=== PATIENT | male | born 1980 | race Caucasian/White ===

== ENCOUNTER → 2022-02-28 10:03 | Outpatient (CLI) | payer OTHER, SELFPAY ==
[2022-02-28 12:36] LABS: COVID19 -Nasal RAPID Negative (Negative)
== END ==
PROVIDERS: PCP Nurse Practitioner; Visit Provider Family Medicine Sleep Medicine
DX: Z20.822 Contact with and (suspected) exposure to COVID-19 (principal)
CPT/HCPCS: 87635; C9803

== ENCOUNTER 2022-03-03 12:13 | Day surgery (SDC) | payer OTHER, SELFPAY ==
[2022-03-03] VITALS (7 sets, daily range): BP systolic 112–137; BP diastolic 72–93; PULSE 76–92; RESP 14–16; TEMP 30–37; O2SAT 94–98; BMI 38.2
--- NOTE | 2022-03-03 | PATH_ITS ---
[facility] Accession Number: [id number] . 01 Material submitted: . stomach - ANTRAL . 02 Diagnosis: Antral: Portions of gastric antral mucosa with mild chronic inflammation. Negative for Helicobacter organisms by immunohistochemistry. Positive for intestinal metaplasia. Negative for dysplasia or malignancy. MRV 03/07/2022 1340 Local . 02 Electronically signed: . Cortney Capone MD, Pathologist NPI- [id number] . 01 Gross description: . ANTRAL: Received in formalin are 2 fragment(s) of mathews, soft tissue measuring 0.3 x 0.3 x 0.2 cm to 0.2 x 0.1 x 0.1 cm submitted entirely in 1 cassette(s) /QBJ 03/04/2022 0926 Local . 02 Microscopic: . An immunohistochemical stain is performed to evaluate for Helicobacter organisms and is negative. The control stain shows appropriate reactivity. . * This test was developed and its performance characteristics determined by [facility]. It has not been cleared or approved by the U.S. Food and Drug Administration. The FDA has determined that such clearance or approval is not necessary. This test is used for clinical purposes. It should not be regarded as investigational or for research. . 02 Pathologist provided ICD-10: R10.11, K76.0 . 02 CPT . 648506, B86076 Specimen Comment: A courtesy copy of this report has been sent to [facility] Pathology Performed at: 01 [facility] Cytology [address] [place] [address], [place], [place] [id number] MD Adan Vazquez MD Phone: [phone] Performed at: 02 [facility] [place] [address] [place], [place] [id number] MD Bhargavi Manzano MD Phone: [phone]
--- NOTE | 2022-03-03 13:36 | PM.HP.1 ---
History of Present Illness History of Present Illness Date Patient Seen: 03/03/22 Time Patient Seen: 13:36 Chief complaint: EGD W/POSS BX Narrative: I reviewed my office note from January 21. No changes. Patient History Medical History Sleep apnea, central Surgical History [place] teeth extracted Meds Home Medications and Allergies Home Medications Medication Instructions Recorded Confirmed Type ACETAMINOPHEN (TYLENOL EXTRA 500 mg PO Q6HP #0 06/08/13 03/03/22 History STRENGTH) CA PANTOTHENATE/FOLIC ACID/VIT 1 tab PO QDAYP #0 06/08/13 03/03/22 History (MULTIVITAMIN) clobetasol 0.05 % topical ointment 0.05 % TOPICAL QDAY #15 06/08/13 03/03/22 Rx ibuprofen 200 mg tablet 400 mg PO Q6HP #0 06/08/13 03/03/22 History Allergies Allergy/AdvReac Type Severity Reaction Status Date / Time No Known Drug Allergies Allergy Verified 03/03/22 13:32 Review of Systems Review of Systems ROS: Yes All systems reviewed with the patient and are negative except as otherwise documented Exam Const General: cooperative and comfortable Orientation: alert HENMT Head: normocephalic Ears: external ears normal Nose: external nose normal Face and sinus: normal facial exam Mouth: oral mucosae normal Eyes General: appearance normal, both eyes and all related structures Neck Neck: normal visual inspection Chest Chest: normal inspection of the chest Resp Effort & Inspection: normal respiratory effort Cardio Rate: regular rate GI Inspection: normal to inspection Skin General: no rashes or lesions noted and No jaundice Neuro General: patient alert and moves all extremities Cognition: normal cognition Speech: speech normal Extrem General: no pedal edema Psych Appearance: grossly normal Assessment & Plan Assessment & Plan narrative: 41-year-old male with intermittent right upper quadrant pain. Diagnostic EGD is pursued today. Time Spent With Patient Critical Care time: I spent a total of [] minutes of critical care time on this patient's care today; this time is exclusive of procedural time.
--- NOTE | 2022-03-03 13:38 | PM.PREOP ---
Pre-operative Note COVID-19 COVID-19 status: Negative Result date/Date tested (Pos, Neg/Pending): 02/28/22 Criteria for continued procedure: Possibility delay results in more complex future surgery or treatment Interval Note History & Physical reviewed/Exam performed by Physician: Yes Changes to H&P: No ASA Class (for procedural sedation): II
[2022-03-03] MEDS: SODIUM CHLORIDE 0.9% 1,000 ML 84 ML IV (13:48)
--- NOTE | 2022-03-03 14:41 | PM.OP.EGD ---
Operative Date/Time/Diagnoses Date of procedure: 03/03/22 Time of procedure: 14:41 Pre-op diagnosis: Right upper quadrant pain Post-op diagnosis: same Procedure & Clinicians Study performed: EGD with biopsies Same procedure as scheduled: Yes Indications: Right upper quadrant pain Surgeon: Jesse Alvarado Procedure Notes SCOAP/Timeout: Done Procedure in detail: After the risks and benefits were explained, written and verbal informed consent was obtained. The patient was brought into the procedure room and placed into the left lateral decubitus position. Please see nurse pole frame construction worker notes for sedation details. The scope was introduced into the mouth through the bite block and advanced under direct visualization to the 2nd portion of the duodenum. The scope was slowly withdrawn carefully examining the mucosa for any defects or lesions. Retroflexed views were accomplished in the stomach. The stomach was decompressed, the scope was then removed from the patient who tolerated the procedure well. Sedation minutes: 7 Complications: none Impression: 1. Esophagus: Squamocolumnar junction correlated with the top of the gastric folds. GEJ was at 38 cm from the incisors. No acute erosive changes no strictures no mass lesions. The esophagus was largely unremarkable. 2. Stomach: Patient had erosive gastropathy. Erosions were confined to the region of the antrum and some elements of the distal body. Biopsies were taken from the antral mucosa for exclusion of Helicobacter or other underlying pathology. There were no ulcers no outlet obstruction no mass lesions. 3. Duodenum: The the process responsible for the erosive gastropathy seem to extend through the widely patent pylorus into the duodenal bulb. This was characterized by scattered erythema but no ulcers no mass lesions. Beyond the bulb the mucosa in the duodenum appeared completely normal. Endoscopic diagnosis Erosive gastro-duodenopathy Post-procedure Plan for aftercare: 1. Await histopathology. 2. If Helicobacter is found it will need to be eradicated with standard triple therapy. 3. Minimize/avoid ibuprofen and other NSAIDs. 4. Keep scheduled surgical appointment to discuss gallbladder. Disposition: PACU
== END 2022-03-03 15:20 | disposition home or self-care (01) ==
PROVIDERS: PCP Nurse Practitioner; Referring Provider Internal Medicine Gastroenterology; Visit Provider Internal Medicine Gastroenterology
PROC: 0DJ08ZZ Inspection of Upper Intestinal Tract, Via Natural or Artificial Opening Endoscopic (ICD-10-PCS; CPT 43235; principal; 2022-03-03 13:30)
DX: R10.11 Right upper quadrant pain (principal); K31.9 Disease of stomach and duodenum, unspecified; K29.50 Unspecified chronic gastritis without bleeding
CPT/HCPCS: 43239; J2704

== ENCOUNTER → 2022-10-02 10:38 | Outpatient (CLI) | payer OTHER, SELFPAY ==
[2022-10-02 11:25] LABS: COVID19 -Nasal RAPID Negative (Negative)
== END ==
PROVIDERS: PCP Nurse Practitioner; Visit Provider Surgery
DX: Z01.812 Encounter for preprocedural laboratory examination (principal); Z20.822 Contact with and (suspected) exposure to COVID-19
CPT/HCPCS: 87635; C9803

== ENCOUNTER 2022-10-03 10:48 | Day surgery (SDC) | payer OTHER, SELFPAY ==
[2022-10-02 10:46] VITALS: BMI 37.4
[2022-10-03] VITALS (11 sets, daily range): BP systolic 131–167; BP diastolic 83–107; PULSE 72–87; RESP 10–19; TEMP 36.4–37; O2SAT 94–99; BMI 37.4
--- NOTE | 2022-10-03 | PATH_ITS ---
[facility] Accession Number: [id number] . 01 Material submitted: . gallbladder - GALLBLADDER . 01 Diagnosis: Gallbladder, Cholecystectomy: Mild chronic calculous cholecystitis. Adjacent hepatic tissue without significant diagnostic abnormalities. Negative for dysplasia or malignancy. [facility] 10/07/2022 1120 Local . 01 Electronically signed: . Jennifer Loya MD, Pathologist NPI- [id number] . 01 Gross description: . Received in formalin, labeled with the patient's name, , and gallbladder, and consists of an intact gallbladder measuring 7.2 x 3.2 x 3.2 cm. The serosa is yellow and smooth while the hepatic surface is shaggy and significant for a full-thickness defect measuring 0.5 cm in greatest dimension. The cystic duct is received closed with a clamp, is inked blue, and no pericystic lymph node is identified. Opening the specimen reveals the lumen to be filled with dark green viscous bile and multiple orange-brown faceted calculi measuring up to 1.4 cm in greatest dimension, not grossly obstructing the cystic duct. The mucosa is dark green and velvety with numerous pinpoint yellow areas of discoloration, with no polyps or lesions identified. The morales average 0.4 cm thick. Refrigeration Person sections to include the cystic duct margin and full-thickness sections are submitted in cassettes A1-A2. ([id number]) /FRR 10/04/20221999 Local . 01 Pathologist provided ICD-10: K80.50 . 01 CPT . 561121 Specimen Comment: A courtesy copy of this report has been sent to [phone] Performed at: 01 [facility] Cytology [address] [place] [address], [place], [place] [id number] MD Adan Vazquez MD Phone: [phone]
[2022-10-03] MEDS: LACTATED RINGERS 1,000 ML 100 ML IV (11:36)
--- NOTE | 2022-10-03 12:48 | PM.PREOP ---
Pre-operative Note Interval Note History & Physical reviewed/Exam performed by Physician: Yes Changes to H&P: No
--- NOTE | 2022-10-03 13:50 | SUR.OPER ---
Supine on padded OR bed, head on pillow, arms padded and left arm tucked at side, legs uncrossed, safety belt at thigh, tape over blanket over lower legs .
[2022-10-03] MEDS: CEFAZOLIN 2 GM/100 ML PREMIX 100 ML IV (14:20)
[2022-10-03] MEDS: BUPIVACAINE 0.25% (PF) 30 ML, EPINEPHrine 0.15 MG INJ (14:30)
[2022-10-03] MEDS: fentaNYL 100 MCG/2 ML INJ IV ×2 (15:25→15:34)
--- NOTE | 2022-10-03 15:35 | PM.OP.1 ---
Operative Date/Time/Diagnoses Date of procedure: 10/03/22 Time of procedure: 15:35 Pre-op diagnosis: Biliary colic Post-op diagnosis: same Procedure & Clinicians Procedure: Laparoscopic cholecystectomy Same procedure as scheduled: Yes Indications: Symptoms and radiographic findings consistent with biliary colic Surgeon: Kuldip Murray Click Yes if Unassisted: Yes Anesthesia Type: General Operative Notes Findings: Chronic cholecystitis thick layer of adipose tissue of the gallbladder. Critical view of safety established Specimen(s): other (Gallbladder) Estimated Blood Loss (mL): 50 Procedure in detail: The patient was placed supine on the table and bilateral lower extremity compression devices were applied. Anesthesia was induced they were intubated with an endotracheal tube and received 2g of Ancef. A time-out was performed. They were prepped and draped in sterile fashion. An infraumbilical incision was made, the umbilical stalk was elevated and the fascia was sharply incised entering the abdomen atraumatically. A blunt tip 12mm balloon trocar was then inserted, pneumoperitoneum was established and inspection of the abdomen demonstrated no evidence of injury. They were placed head up and right side up and then a 11 mm port was placed high in the epigastrium and two 5mm in the right upper quadrant. The gallbladder was grasped by the fundus and retracted over the liver and retracted laterally by the infundibulum. Wall of the gallbladder was thick and covered with adipose tissue consistent with chronic cholecystitis. Using electrocautery the lateral plane between the gallbladder and the liver was opened towards the fundus. The gallbladder was then retracted laterally and the medial plane was developed in the same manner. With the gallbladder mobilized the bottom of the cystic plate was visualized. The hepatocystic triangle was meticulosly skeletonized using hook electrocautery of all fat and fibrous tissue from both the front and the back. Only two structures were then clearly seen entering the gallbladder the cystic duct and the cystic artery. With the critical view of safety fully established the cystic duct was clipped twice proximally and once distally using the 10 mm weck hemo clip applied under direct visualization and then sharply divided. The cystic artery was divided in the same fashion. The gallbladder was removed from the liver bed using electro cautery. The liver bed was then inspected for hemostasis and this was achieved. The abdomen was irrigated with sterile saline and inspection was made that showed the clips in good position. The specimen was removed using Endo-Catch. The abdomen was desufflated. The umbilical fascia was closed with 0 Vicryl in a [id number] fashion under direct visualization. Skin incisions were irrigated and closed with 4-0 Monocryl. 30 ml of 0.25% bupivacaine was infiltrated into the subcutaneous tissue of the incisions. The wounds were sealed with Dermabond. Patient emerged from anesthesia was extubated and transferred to recovery in stable condition. The sponge and instrument count at the end of the operation was correct. Complications: none Post-operative Condition: stable Disposition: same day surgery
[2022-10-03] MEDS: OXYCODONE/ACETAMINOPHEN 5/325 TABLET 1 TAB PO ×2 (15:50→16:21)
== END 2022-10-03 16:33 | disposition home or self-care (01) ==
PROVIDERS: PCP Nurse Practitioner; Referring Provider Surgery; Visit Provider Surgery
PROC: 0FT44ZZ Resection of Gallbladder, Percutaneous Endoscopic Approach (ICD-10-PCS; CPT 47562; principal; 2022-10-03 12:30)
DX: K80.10 Calculus of gallbladder with chronic cholecystitis without obstruction (principal)
CPT/HCPCS: 47562; J0171; J0690; J1100; J1885; J2250; J2405; J2704; J3010

== ENCOUNTER 2024-01-29 12:19 | Day surgery (SDC) | payer OTHER, SELFPAY ==
--- NOTE | 2024-01-29 | PATH_ITS ---
[facility] Accession Number: [id number] No. of containers..01 Tissue . 01 Material submitted: . gastrointestinal site - GASTRIC BIOPSY . 01 Diagnosis: GASTRIC BIOPSY: Gastric mucosa with mild chronic inflammation. No Helicobacter organisms identified. No intestinal metaplasia, dysplasia, or malignancy identified. [facility] 02/03/2024 1308 Local . 01 Electronically signed: . Adan Vazquez MD, Pathologist NPI- [id number] . 01 Gross description: . GASTRIC BIOPSY: Received in formalin are 3 fragment(s) of mathews, soft tissue measuring 0.1 x 0.1 x 0.1 cm to 0.2 x 0.2 x 0.2 cm submitted entirely in 1 cassette(s) /KURT 02/03/20241307 Local . 01 Microscopic: . GASTRIC BIOPSY: An immunohistochemical stain was performed to evaluate for Helicobacter organisms and is negative. The control stains appropriately. * This test was developed and its performance characteristics determined by [facility]. It has not been cleared or approved by the U.S. Food and Drug Administration. The FDA has determined that such clearance or approval is not necessary. This test is used for clinical purposes. It should not be regarded as investigational or for research. . 01 Pathologist provided ICD-10: K29.50 . 01 CPT . 888195, C61805 Specimen Comment: A courtesy copy of this report has been sent to [phone] Performed at: 01 [facility] Cytology [address] [place] [id number] MD Adan Vazquez MD Phone: [phone]
[2024-01-29 12:37] VITALS: BP 142/76; PULSE 87; RESP 16; TEMP 36.9; O2SAT 99
[2024-01-29] MEDS: LACTATED RINGERS 1,000 ML 42 ML IV (12:41)
--- NOTE | 2024-01-29 13:31 | PM.HP.1 ---
History of Present Illness History of Present Illness Date Patient Seen: 01/29/24 Time Patient Seen: 13:31 Chief complaint: EGD w/poss bx Narrative: 43-year-old man with epigastric pain here for diagnostic esophagogastroduodenoscopy please refer to the H&P from November 2023 for further detail. No interval change in health. [facility] Medical History Hypertriglyceridemia Gallstones Fatty liver Sleep apnea, central Surgical History [place] teeth extracted Family History Grandfather Stroke Prostate cancer Family/Other Cancer, face Social History marital status: household members: spouse, family and children lives independently: Yes occupational status: employed Smoking Status: Never smoker alcohol intake: current substance use type: does not use Meds Home Medications and Allergies Home Medications Medication Instructions Recorded Confirmed Type clobetasol 0.05 % topical ointment 0.05 % topical QDAY ##15 06/08/13 01/29/24 Rx lysine 500 mg tablet 500 mg PO DAILY 03/13/22 01/29/24 History ketoconazole 2 % topical cream 1 applic topical BID 12/24/23 01/29/24 History pantoprazole 40 mg tablet,delayed 40 mg PO BEDTIME 12/24/23 01/29/24 History release ursodiol 500 mg tablet 500 mg PO BID 12/24/23 01/29/24 History Allergies Allergy/AdvReac Type Severity Reaction Status Date / Time No Known Drug Allergies Allergy Verified 01/29/24 12:24 Exam Vital Signs (past 8 hours): - 01/29/24 12:37 Temperature 98.5 F Pulse Rate 87 Respiratory Rate 16 Blood Pressure 142/76 H Pulse Oximetry 99 Oxygen Delivery Method Room Air Oxygen Delivery Method Room Air Narrative Exam Narrative: General adult man alert oriented no acute distress Chest nonlabored respiration Extremities warm well perfused Assessment & Plan Assessment and plan (1) Abdominal pain: Qualifiers: Abdominal location: upper abdomen, unspecified Qualified Code(s): R10.10 - Upper abdominal pain, unspecified Status: Acute Assessment & Plan narrative: 43-year-old man with abdominal pain here for diagnostic insert EGD. Risks, benefits, alternatives explained. Risks including but not limited to myocardial infarction, aspiration, bleeding, pain, missed lesion, incomplete examination, need for further radiographic studies, intestinal injury, and need for major abdominal surgery were discussed. All questions were answered to their satisfaction, and they are in agreement with this plan.
[2024-01-29 13:53] VITALS: BP 139/73; PULSE 91; RESP 12; TEMP 36.3; O2SAT 96
--- NOTE | 2024-01-29 13:55 | PM.OP.EGD ---
Operative Date/Time/Diagnoses Date of procedure: 01/29/24 Time of procedure: 13:55 Pre-op diagnosis: Abdominal pain Procedure & Clinicians Study performed: Diagnostic esophagogastroduodenoscopy Same procedure as scheduled: Yes Indications: Epigastric pain Surgeon: Kuldip Murray Procedure Notes Procedure in detail: The history and physical was performed/updated and the patient is ASA class is 2. The procedure was discussed in detail with the patient. Potential risks complications including infection, bleeding, missed diagnosis, perforation, need for surgery, and were explained. Their questions were answered and informed consent was obtained. Patient placed in left lateral decubitus position. Time out was performed. Procedural sedation was administered by Anesthesia. A bite block was placed. the scope was inserted into the mouth and advanced through the esophagus and into the stomach. The pylorus was intubated and the duodenum was examined to the 2nd portion. The scope was then withdrawn into the stomach and was retroflexed. The stomach was decompressed and scope was withdrawn slowly through the esophagus. FINDINGS -mild gastritis without ulceration. Biopsies of the stomach performed with forceps. -normal duodenum and esophagus The patient tolerated the procedure well and will be discharged when they meet criteria. Specimen(s): other (Gastric) Impression: Mild gastritis Post-procedure Plan for aftercare: Continue PPI. A repeat CT abdomen pelvis will be ordered and if it demonstrates residual fluid collections in the right upper quadrant proceed with interventional radiology percutaneous drainage. Disposition: same day surgery
[2024-01-29 13:58] VITALS: BP 121/74; PULSE 83; RESP 12; O2SAT 96
[2024-01-29 14:02] VITALS: BP 121/74; PULSE 84; RESP 14; O2SAT 96
[2024-01-29 14:08] VITALS: BP 124/89; PULSE 83; RESP 16; O2SAT 95
== END 2024-01-29 14:25 | disposition home or self-care (01) ==
PROVIDERS: PCP Nurse Practitioner; Referring Provider Surgery; Visit Provider Surgery
PROC: 0DJ08ZZ Inspection of Upper Intestinal Tract, Via Natural or Artificial Opening Endoscopic (ICD-10-PCS; CPT 43235; principal; 2024-01-29 13:15)
DX: K29.50 Unspecified chronic gastritis without bleeding (principal)
CPT/HCPCS: 43239; J2704

== ENCOUNTER → 2024-03-10 11:08 | Outpatient (CLI) | payer OTHER, SELFPAY ==
--- NOTE | 2024-03-10 11:09 | DI.CT.S_ITS ---
PROCEDURE: CT ABDOMEN PELVIS W CON INDICATIONS: Intra abdominal fluid collection, history of cholecystectomy TECHNIQUE: After the administration of intravenous contrast, axial sections acquired from the lung bases to the pubic symphysis. Coronal and sagittal reformats were performed. For radiation dose reduction, the following was used: automated exposure control, adjustment of mA and/or kV according to patient size. COMPARISON: CT abdomen pelvis 08/20/2023. FINDINGS: Image quality: Diagnostic. Lower Chest: No significant findings. ABDOMEN: Liver: No solid mass. Gallbladder: Status post cholecystectomy. There is fluid attenuating density in the gallbladder fossa measuring up to 1.7 cm, stable since 08/20/2023. No drainable fluid collection. Biliary ducts: No biliary dilation. Pancreas: No ductal dilation. Spleen: Size is within normal limits. Adrenal Glands: No adrenal nodules. Kidneys and Ureters: No hydronephrosis. No solid mass. No complex renal cystic lesion which requires follow up. Stomach and Bowel: Normal colonic caliber, without significant wall thickening. Peritoneum: No abnormal intraperitoneal fluid. No free air. Ventral Wall: No significant ventral hernia. Abdominal Nodes: No retroperitoneal or mesenteric adenopathy by size criteria. Vessels: Aorta and inferior vena cava are normal in size. PELVIS: Pelvic Organs: Unremarkable. Bladder: No bladder wall thickening, accounting for underdistention. Pelvic Nodes: No enlarged lymph nodes. Miscellaneous: No inguinal hernias are seen. Bones: No aggressive osseous abnormality. IMPRESSION: Status post cholecystectomy with fluid attenuating density in the gallbladder fossa, not significantly changed since CT in July 2023. Approved by: Iesha Arora M.D.,Ph.D. on 03/10/2024 at 17:36
== END ==
PROVIDERS: PCP Nurse Practitioner; Referring Provider Surgery; Visit Provider Surgery
DX: R18.8 Other ascites (principal); Z90.49 Acquired absence of other specified parts of digestive tract
CPT/HCPCS: 74177; Q9967

== ENCOUNTER 2025-08-08 23:18 | Observation (INO) | payer OTHER, SELFPAY ==
[2025-08-08 23:24] VITALS: BP 156/92; PULSE 114; RESP 18; TEMP 37.7; O2SAT 97; BMI 40.4
--- NOTE | 2025-08-08 23:43 | DI.CT.S_ITS ---
PROCEDURE: CT ABDOMEN PELVIS W CON INDICATIONS: RLQ pain TECHNIQUE: After the administration of intravenous contrast, axial sections acquired from the lung bases to the pubic symphysis. Coronal and sagittal reformats were performed. For radiation dose reduction, the following was used: automated exposure control, adjustment of mA and/or kV according to patient size. COMPARISON: [facility], CT, CT ABDOMEN PELVIS W CON, 03/10/2024, 11:19. FINDINGS: Image quality: Diagnostic. Lower Chest: No significant findings. ABDOMEN: Liver: No solid mass. Gallbladder: Absent. Again seen fluid attenuation density near the gallbladder fossa measuring approximately 1.7 cm, stable. Biliary ducts: No biliary dilation. Pancreas: No ductal dilation. Spleen: Size is within normal limits. Adrenal Glands: No adrenal nodules. Kidneys and Ureters: No hydronephrosis. No solid mass. No complex renal cystic lesion which requires follow up. Stomach and Bowel: Normal colonic caliber, without significant wall thickening. The proximal portion of the appendix is dilated measuring up to 11 mm with mild surrounding inflammation. Peritoneum: No abnormal intraperitoneal fluid. No free air. Minimal central mesenteric stranding is noted. Ventral Wall: No significant ventral hernia. Abdominal Nodes: No retroperitoneal or mesenteric adenopathy by size criteria. Vessels: Aorta and inferior vena cava are normal in size. PELVIS: Pelvic Organs: Unremarkable. Bladder: Decompressed, limiting evaluation. Pelvic Nodes: No enlarged lymph nodes. Miscellaneous: No inguinal hernias are seen. Bones: No aggressive osseous abnormality. IMPRESSION: Dilatation of the proximal appendix which is fluid-filled with mild surrounding inflammation, most consistent with acute appendicitis. No extraluminal gas or organized fluid collections. Dictated by: Demario Orellana M.D. on 08/09/2025 at 0:26 Approved by: Demario Orellana M.D. on 08/09/2025 at 0:30
[2025-08-08] MEDS: KETOROLAC 30 MG/ML VIAL 15 MG IV (23:47)
[2025-08-08 23:48] LABS: Add Manual Diff / Slide Review NO; Hematocrit 47.9 % (41-53); Hemoglobin 16.4 g/dL (13.5-17.5); Lymphocytes Absolute Auto 1700 /uL (1100-4500); Mean Corpuscular HGB Conc 34.3 % (30-36); Mean Corpuscular Hemoglobin 29.9 PG (26-34); Mean Corpuscular Volume 87.3 fL (80-100); Platelet Count 215 X10^3/uL (150-400)
[2025-08-09] VITALS (14 sets, daily range): BP systolic 104–155; BP diastolic 57–92; PULSE 81–106; RESP 16–36; TEMP 36.7–37.6; O2SAT 91–97; BMI 40.4
--- NOTE | 2025-08-09 | PATH_ITS ---
[facility] Accession Number: [id number] No. of containers..01 Tissue . 01 Material submitted: . appendix - APPENDIX . 01 Diagnosis: APPENDIX, APPENDECTOMY: Acute suppurative appendicitis with distal fibrous obliteration. MRV 08/16/2025 1728 Local . 01 Electronically signed: . Danita Parikh DO, Pathologist NPI- [id number] . 01 Gross description: . The specimen is received in formalin with two patient identifiers and appendix and consists of a 6.5 x 1.0 x 0.9 cm, vermiform appendix with an attached 4.0 x 0.8 x 0.4 cm mesoappendix. The serosal surface is mathews-white, slightly hyperemic with a 1.1 cm in greatest dimension central area of yellow to white laminated exudative fibrous adhesions. The appendiceal margin is clipped and is further inked blue. Sectioning shows an intact appendiceal wall averaging 0.2 cm in thickness. No perforation is appreciated. The lumen ranges from 0.1 up to 0.3 cm in diameter. Paper Products Supervisor sections are submitted in cassette A1 to include the tip of appendix bisected, complete cross-section of appendix to include exudative serosa, and blue-inked appendiceal resection margin. ([id number]) /MRV 08/10/2025 1836 Local . 01 Pathologist provided ICD-10: K38.9 . 01 CPT . 394051 Specimen Comment: A courtesy copy of this report has been sent to [facility] Pathology Performed at: [address] [address], [place], [place] [id number] MD Adan Vazquez MD Phone: [phone]
[2025-08-09 00:02] LABS: Alanine Aminotransferase 54 IU/L (<50); Albumin 5.0 g/dL (3.5-5.0); Albumin Globulin Ratio 1.4 (1.0-2.8); Alkaline Phosphatase 78 U/L (38-126); Blood Urea Nitrogen 19 mg/dL (9-20); Calcium 9.8 mg/dL (8.4-10.2); Carbon Dioxide 27 mmol/L (22-32); Chloride 101 mmol/L (98-107); Estimated Glomerular Filt Rate > 60 mL/min (>60); Globulin 3.5 g/dL (1.7-4.1); Glucose 107 mg/dL (70-99); HEMOLYSIS < 15 (0-50); Lipase 92 U/L (23-300); Potassium 3.8 mmol/L (3.4-5.1); Sodium 139 mmol/L (137-145); Total Protein 8.5 g/dL (6.3-8.2)
--- NOTE | 2025-08-09 00:12 | ED.ABDPAIN ---
HPI - Abdominal Pain General Chief Complaint: Abdominal Pain Stated Complaint: Abdominal Pain, Fever, Chills Time Seen by Provider: 08/08/25 23:40 Source: patient, RN notes reviewed and old records reviewed Mode of arrival: Ambulatory Limitations: no limitations History of Present Illness HPI narrative: 45-year-old male no reported medical issues presents with a complaint of right lower quadrant pain that started about 4:00 a.m. this afternoon has been persistent has not changed location. He denies any back or flank pain. No fevers or chills. Denies any nausea or vomiting. Denies any diarrhea or constipation, no black or bloody stools. No dysuria urgency or frequency. Patient states he does not take any daily medications. He has had a prior cholecystectomy but still has a appendix. Denies any history of kidney stones. Denies any drug allergies. No tobacco, as 2 alcoholic drinks daily, no recreational drugs. Related Data Home Medications ?Medication ?Instructions ?Recorded ?Confirmed lysine 500 mg tablet 500 mg PO DAILY 03/13/22 01/29/24 ketoconazole 2 % topical cream 1 applic topical BID 12/24/23 01/29/24 pantoprazole 40 mg tablet,delayed 40 mg PO BEDTIME 12/24/23 01/29/24 release ursodiol 500 mg tablet 500 mg PO BID 12/24/23 01/29/24 Previous Rx's ?Medication ?Instructions ?Recorded clobetasol 0.05 % topical ointment 0.05 % topical QDAY ##15 06/08/13 Allergies Allergy/AdvReac Type Severity Reaction Status Date / Time No Known Drug Allergies Allergy Verified 01/29/24 12:24 Review of Systems Review of Systems ROS Unobtainable: All systems reviewed & are unremarkable except as noted in HPI and below Patient History Medical History Hypertriglyceridemia Gallstones Fatty liver Sleep apnea, central Surgical History [place] teeth extracted Family History Grandfather Stroke Prostate cancer Family/Other Cancer, face Social History marital status: household members: spouse, family and children lives independently: Yes occupational status: employed Smoking Status: Never smoker alcohol intake: current substance use type: does not use Smoking Status: Never smoker alcohol intake frequency: a few times a week Exam Narrative Exam Narrative: GENERAL: Alert and oriented x three, male in mild distress HEENT: Head normocephalic, atraumatic, EOMI, pupils reactive, face symmetric, moist mucous membranes NECK: Supple, full range of motion CARDIOVASCULAR: Regular rate and rhythm without murmurs, rubs or gallops. RESPIRATORY: Breath sounds equal bilaterally, no wheezes rales or rhonchi. ABDOMEN: Soft, positive for right lower quadrant tenderness. Normoactive bowel sounds all 4 quadrants. No guarding or rebound, rigidity, no mass, no rash, erythema or other skin changes. : No CVA tenderness EXTREMITIES: Normal range of motion, no clubbing or edema. Neurovascularly intact NEUROLOGICAL: Cranial nerves II through XII grossly intact. Moving all extremities SKIN: Warm, dry, no petechiae, no rashes or lesions. Initial Vital Signs Initial Vital Signs: Vital Signs Temperature 99.9 F H 08/08/25 23:24 Pulse Rate 114 H 08/08/25 23:24 Respiratory Rate 18 08/08/25 23:24 Blood Pressure 156/92 H 08/08/25 23:24 Pulse Oximetry 97 08/08/25 23:24 Oxygen Delivery Method Room Air 08/08/25 23:24 Course Orders Ordered: ED Orders 08/08/25 23:35 Complete Blood Count AUTO DIFF Stat Comprehensive Metabolic Panel Stat Lipase Stat 08/08/25 23:43 CT abdomen pelvis w con Stat Sodium Chloride (Normal Saline 0.9%) 1,000 mls @ 150 mls/hr IV CONT JULIANA Last Admin: 08/09/25 01:33 Dose: 150 mls/hr Ondansetron HCl (Ondansetron 4 Mg/2 Ml Inj) 4 mg IV NOW PRN PRN Reason: Nausea And Vomiting Ondansetron HCl (Ondansetron 4 Mg Odt) 4 mg PO NOW PRN PRN Reason: Nausea And Vomiting Discontinued Medications Metronidazole (Flagyl) 500 mg in 100 mls @ 100 mls/hr IV NOW ONE Stop: 08/09/25 01:47 Last Admin: 08/09/25 01:33 Dose: 100 mls/hr Ceftriaxone Sodium 2,000 mg/ (Sodium Chloride) 100 mls @ 200 mls/hr IV NOW ONE Stop: 08/09/25 00:49 Last Infusion: 08/09/25 01:33 Dose: Infused Ketorolac Tromethamine (Ketorolac 30 Mg/Ml Vial) 15 mg IV NOW ONE Stop: 08/08/25 23:44 Last Admin: 08/08/25 23:47 Dose: 15 mg Documented By: TAMIKA Vital Signs Vital signs: Vital Signs - 8 hr 08/08/25 23:24 08/09/25 01:03 Temperature 99.9 F H 99.6 F Pulse Rate 114 H 106 H Respiratory Rate 18 36 H Blood Pressure 156/92 H 143/83 H Pulse Oximetry 97 96 Oxygen Delivery Method Room Air Room Air MDM - Abdominal Pain Lab Data 08/08/25 23:35 08/08/25 23:35 Labs: Lab Results 08/08/25 Range/Units 23:35 WBC 15.9 H (4.5-11.0) X10^3/uL RBC 5.49 (4.5-5.9) X10^6/uL Hgb 16.4 (13.5-17.5) g/dL Hct 47.9 (41-53) % MCV 87.3 (80-100) fL MCH 29.9 (26-34) PG MCHC 34.3 (30-36) % RDW 13.1 (11.6-14.8) % Plt Count 215 (150-400) X10^3/uL Neut % (Auto) 81.9 H (50-75) % Lymph % (Auto) 10.9 L (25-40) % [place] % (Auto) 5.8 (3-14) % Eos % (Auto) 0.3 L (2-4) % Baso % (Auto) 1.1 (0-2) % Neut # (Auto) 30538 H (6704-4565) /uL Lymph # (Auto) 1700 (3930-6766) /uL [place] # (Auto) 900 (0-900) /uL Eos # (Auto) 0 (0-450) /uL Baso # (Auto) 200 H (0-100) /uL Sodium 139 (137-145) mmol/L Potassium 3.8 (3.4-5.1) mmol/L Chloride 101 (98-107) mmol/L Carbon Dioxide 27 (22-32) mmol/L BUN 19 (9-20) mg/dL Creatinine 0.80 (0.66-1.25) mg/dL Estimated GFR > 60 (>60) mL/min BUN/Creatinine Ratio 23.8 H (6-22) Glucose 107 H (70-99) mg/dL Calcium 9.8 (8.4-10.2) mg/dL Total Bilirubin 0.9 (0.2-1.3) mg/dL AST 39 (17-59) IU/L ALT 54 H (<50) IU/L Alkaline Phosphatase 78 (38-126) U/L Total Protein 8.5 H (6.3-8.2) g/dL Albumin 5.0 (3.5-5.0) g/dL Globulin 3.5 (1.7-4.1) g/dL Albumin/Globulin Ratio 1.4 (1.0-2.8) Lipase 92 (23-300) U/L Point of care testing: Urine Dip Bedside Urine Glucose Negative Bedside Urine Bilirubin - Negative Bedside Urine Ketone - Negative Urine Specific [place] 1.015 Bedside Urine Occult Blood - Negative Bedside Urine pH 7.0 Bedside Urine Protein +/- 15 Bedside Urine Urobilinogen - Negative Bedside Urine Nitrite - Negative Bedside Urine Leukocytes - Negative Esterase MDM Narrative Medical decision making narrative: Labs show white count of 15.9 hemoglobin 16 platelets are 215, chemistries are appropriate BUN and creatinine normal glucose is 107 ALT is 54 but normal bilirubin, AST is 39, lipase is 92. CT abdomen pelvis with contrast shows dilation of proximal appendix fluid-filled with mild surrounding inflammation, it is dilated at 11 mm. No extraluminal gas or organized fluid collections. Patient received Toradol, IV antibiotics He is NPO Spoke with Dr. Culver, general surgery accepts for appendicitis 0150 Discharge Plan Departure Patient Disposition: Admitted As Inpatient Clinical Impression: Acute appendicitis Admit Date/Time: 08/09/25 01:57 Admit Provider: Francisco Culver
[2025-08-09] MEDS: cefTRIAXone 2,000 MG in SODIUM CHLORIDE 0.9% 100 ML 200 MG IV (01:02)
[2025-08-09] MEDS: metroNIDAZOLE 500 MG/100 ML PIGGYBACK 100 MG IV (01:33)
[2025-08-09] MEDS: SODIUM CHLORIDE 0.9% 1,000 ML 150 ML IV (01:33)
--- NOTE | 2025-08-09 02:24 | PM.HP.IH.1 ---
History of Present Illness History of Present Illness Date Patient Seen: 08/09/25 Time Patient Seen: 02:24 Chief complaint: Abdominal Pain, Fever, Chills Narrative: 45yo M admitted through ED for laparoscopic appendectomy for CT proven acute appendicitis, non-perforated. Last po at 1800 yesterday. PFSH Medical History Hypertriglyceridemia Gallstones Fatty liver Sleep apnea, central Surgical History [place] teeth extracted Family History Grandfather Stroke Prostate cancer Family/Other Cancer, face Social History marital status: household members: spouse, family and children lives independently: Yes occupational status: employed Smoking Status: Never smoker alcohol intake: current substance use type: does not use Meds Home Medications and Allergies Home Medications ?Medication ?Instructions ?Recorded ?Confirmed ?Type clobetasol 0.05 % topical ointment 0.05 % topical QDAY ##15 06/08/13 01/29/24 Rx lysine 500 mg tablet 500 mg PO DAILY 03/13/22 01/29/24 History ketoconazole 2 % topical cream 1 applic topical BID 12/24/23 01/29/24 History pantoprazole 40 mg tablet,delayed 40 mg PO BEDTIME 12/24/23 01/29/24 History release ursodiol 500 mg tablet 500 mg PO BID 12/24/23 01/29/24 History Allergies Allergy/AdvReac Type Severity Reaction Status Date / Time No Known Drug Allergies Allergy Verified 01/29/24 12:24 Exam Vital Signs (past 8 hours): - 08/08/25 23:24 08/09/25 01:03 Temperature 99.9 F H 99.6 F Pulse Rate 114 H 106 H Respiratory Rate 18 36 H Blood Pressure 156/92 H 143/83 H Pulse Oximetry 97 96 Oxygen Delivery Method Room Air Room Air Oxygen Delivery Method Room Air Narrative Exam Narrative: Const General: healthy appearing, comfortable and no acute distress Orientation: alert and oriented x3 HENMT Ears: hearing grossly normal bilaterally Eyes Visual Antonio: normal visual antonio by confrontation Conjunctivae: conjunctivae normal Sclera: sclerae normal EOM: EOM intact bilaterally Resp Effort & Inspection: normal respiratory effort and able to speak in complete sentences Cardio Rate: regular rate GI Palpation: soft, +RLQ tender Extrem General: no pedal edema and no calf tenderness Objective Labs 08/08/25 23:35 08/08/25 23:35 Labs: Laboratory Results - last 24 hr 08/08/25 23:35 WBC 15.9 H RBC 5.49 Hgb 16.4 Hct 47.9 MCV 87.3 MCH 29.9 MCHC 34.3 RDW 13.1 Plt Count 215 Neut % (Auto) 81.9 H Lymph % (Auto) 10.9 L [place] % (Auto) 5.8 Eos % (Auto) 0.3 L Baso % (Auto) 1.1 Neut # (Auto) 28988 H Lymph # (Auto) 1700 [place] # (Auto) 900 Eos # (Auto) 0 Baso # (Auto) 200 H Sodium 139 Potassium 3.8 Chloride 101 Carbon Dioxide 27 BUN 19 Creatinine 0.80 Estimated GFR > 60 BUN/Creatinine Ratio 23.8 H Glucose 107 H Calcium 9.8 Total Bilirubin 0.9 AST 39 ALT 54 H Alkaline Phosphatase 78 Total Protein 8.5 H Albumin 5.0 Globulin 3.5 Albumin/Globulin Ratio 1.4 Lipase 92 Assessment & Plan Assessment and plan (1) Acute appendicitis: Qualifiers: Acute appendicitis type: with localized peritonitis Appendicitis gangrene presence: without gangrene Appendicitis perforation presence: without perforation Appendicitis abscess presence: without abscess Qualified Code(s): K35.30 - Acute appendicitis with localized peritonitis, without perforation or gangrene Status: Acute Plan Laparoscopic appendectomy, possible open. The risks, benefits and options regarding the procedure were explained to the patient in detail. Risk discussion included but not limited to: open incision, removal of colon, drain, abscess, infection, bleeding. The patient was encouraged to ask questions and they were answered to their satisfaction. The patient understands and is agreeable to proceed. Time-Based Coding :: [TOTAL MINUTES] spent with patient and on the chart (including review of chart, obtaining history, exam, reviewing outside data, placing orders, documenting exam and treatment plan, and counseling patient) on [DATE]. 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
[2025-08-09] MEDS: LACTATED RINGERS 1,000 ML 42 ML IV ×2 (02:58→03:59)
[2025-08-09] MEDS: BUPivacaine 0.25% W/ EPI (PF) 30 ML VIAL 60 ML INJ (03:20)
--- NOTE | 2025-08-09 03:33 | SUR.OPER ---
Supine on padded OR bed, head on pillow, right arms secured on padded arm boards with gel pad at <90 degrees abduction, left arm padded and tucked, legs uncrossed, safety belt at thigh, tape over blanket over lower legs. Surgeon in room to approve final position, all pressure points padded and protected.
--- NOTE | 2025-08-09 03:37 | SUR.OPER ---
Addendum entered by Skye Garcia RN 08/09/25 03:49: Torso straps applied to patient Original Note: Padded Wedge under patient torso per anesthesia request
--- NOTE | 2025-08-09 04:32 | PM.OP.1 ---
Operative Date/Time/Diagnoses Date of procedure: 08/09/25 Time of procedure: 04:32 Pre-op diagnosis: Acute appendicitis Post-op diagnosis: same Procedure & Clinicians Procedure: Laparoscopic appendectomy Same procedure(s) as scheduled: Yes Indications: 45yo M with CT proven acute appendicitis Surgeon: Francisco Culver Assisted?: No Anesthesia Type: General Operative Notes Findings: Retrocecal acute appendicitis, non-perforated Closure Type: primary Specimen(s): other (appy) Applied: none Estimated Blood Loss (mL): 20 Blood products transfused: none Procedure in detail: After informed consent and satisfactory general endotracheal anesthesia, the abdomen was prepped and draped in the usual sterile manner. The patient received appropriate antibiotics and DVT prophylaxis. Surgical time-out was performed with all team members in agreement. The pneumoperitoneum was established via an infraumbilical incision. An 0 Vicryl [id number]-[id number] suture was placed in the umbilical fascia. The abdominal cavity was insufflated to a pressure of 15 mmHg with carbon dioxide gas. The 5mm 30 degree lens was inserted and no trauma secondary to the trocar insertion was noted. The two 5 mm trocars were inserted under direct vision, 1 suprapubic and 1 in the left lower quadrant. Bilateral laparoscopic TAP blocks were performed by injecting 25 cc of 0.25% Marcaine with epinephrine into the transversus abdominis musculature bilaterally. A total of 60 cc of local was used. The remainder was used in the skin. The patient was placed in Trendelenburg jruye-mzdc-ar position. The appendix was noted to be in a retrocecal location and adherent to the cecum. This was mobilized. The mesoappendix was controlled with cautery and once the base of the appendix was skeletonized this was controlled using large hemo lock clips. The appendix was doubly clipped and then divided with Metzenbaum scissors. The appendix was placed into an endo-pouch and removed. The appendix was noted to be dilated with surrounding inflammation but no evidence for perforation. There was no purulence in the right lower quadrant or the pelvis. The right lower quadrant was irrigated and this was suctioned dry. The pneumoperitoneum was released, the trocars were removed. There was no bleeding noted at the trocar sites. The 0 Vicryl uclokn-ur-vowga suture at the umbilical fascia was tied and there were no palpable fascial defects. The 5 mm trocar site in the left lower quadrant had copious venous bleeding from the SQ and attempts to control this were unsuccessful so the incision had to be widened simply to control the bleeding from a subcutaneous vein which was ultimately successful. The skin incisions were closed using 4-0 Monocryl in a subcuticular manner. Dermabond glue was applied as a final dressing. The estimated blood loss was minimal. The instrument sponge and needle counts were all correct x2. The patient tolerated the procedure well and was extubated in the operating room and transported to the recovery area in stable condition. Complications: none Post-operative Condition: stable Disposition: PACU Plan for aftercare: PACU then desouza
[2025-08-09] MEDS: ACETAMINOPHEN IV 1,000 MG/100 ML VIAL 400 MG IV (04:44)
[2025-08-09] MEDS: LACTATED RINGERS 1,000 ML 100 ML IV (05:31)
[2025-08-09] MEDS: HEPARIN 5,000 UNIT/ML VIAL 5000 UNIT SUBCUT (09:05)
--- NOTE | 2025-08-09 11:56 | CM.DANOTE ---
Initial DCP Assessment Visit Note Reviewed EMR and team rounds for pt's medical status and updates. Met with pt at bedside to introduce self and role. Pt was found to be alert/oriented, in no distress, and was stating he was hoping to return home today. Pt resides independently with his spouse and children in their own home here in [place]. His spouse will be transporting him back home as soon as he is medically cleared for d/c. He declines any CM d/c assistance or resource needs at this time. Payor: LASHAWN [facility] PCP: Dr. Up Pt is a 45 year-old M who presented to the ED with c/o R-lower quadrant pain without N/V. CT abd/pelvis showed acaute appendicitis. Surgery was consulted, and the plan was made to admit to [facility] for appendectomy, which was completed very early this morning. His pain is well controlled, and will plan to f/u with surgery OP. Discharge Planning/Care Management CM Discharge Assessment Start: 08/09/25 02:36 Freq: Status: Active Protocol: Document 08/09/25 11:54 DPL (Rec: 08/09/25 11:56 DPL [id number]) Discharge Planning Assessment Assigned Discharge NELI Barros Implementation Technician Insurance [facility]WN [facility] Advance Directives? No History Provided By Patient,Medical Record Has Patient been No admitted in last 30 days? Prior Living House Arrangements Household Members spouse,family,children Type of Drives own vehicle transporation used prior to admit Independent with ADL Yes 's Is patient alert and Yes oriented? Comment N/A Caregiver for Yes: family Another Comment N/A Comment No identified home d/c needs at this time. Barriers to No Discharge Discharge Plan Home Referrals Initiated None needed Whiteboard Updated Yes in Patient Room with name and ext. # of Sales Clerk Supervisor Review Status In Process Please Provide Date 08/09/25 Initial DC Assessment Was Performed
--- NOTE | 2025-08-09 14:15 | PM.DS.IH.1 ---
History of Present Illness History of Present Illness Date Patient Seen: 08/09/25 Time Patient Seen: 14:15 Chief complaint: Abdominal Pain, Fever, Chills Narrative: 45yo M admitted through ED for laparoscopic appendectomy for CT proven acute appendicitis, non-perforated. Last po at 1800 yesterday. Discharge Providers Provider Date of admission: 08/09/25 01:57 Discharge Date: 08/09/25 Primary care physician: ANIYAH Fernandez Discharge provider: Francisco Culver MD Summary Hospital Course Discharge Diagnosis: S/P lap appy for acute appendicitis Hospital Course: Patient presented through ED, CT proven acute appendicitis, lap appy performed, retrocecal, unperforated. Patient tolerated regular diet after surgery and was discharged same day. Status at Discharge Cognitive/behavioral status at discharge: oriented Functional status at discharge: independent ambulation Overall status at discharge: patient is progressing back to baseline Time Spent with Patient Time spent: Less than 30 minutes Exam Vital Signs (past 8 hours): - 08/09/25 07:00 08/09/25 07:00 08/09/25 07:10 Temperature 98.0 F Pulse Rate 88 Respiratory Rate 16 Blood Pressure 122/80 Pulse Oximetry 93 Oxygen Delivery Method CPAP Room Air Oxygen Flow Rate 0 08/09/25 09:07 Temperature 98.4 F Pulse Rate 103 H Respiratory Rate Blood Pressure 117/83 Pulse Oximetry 94 Oxygen Delivery Method Oxygen Flow Rate 0 Oxygen Delivery Method Room Air Oxygen Flow Rate 0 Narrative Exam Narrative: Const General: healthy appearing, comfortable and no acute distress Orientation: alert and oriented x3 HENMT Ears: hearing grossly normal bilaterally Eyes Visual Antonio: normal visual antonio by confrontation Conjunctivae: conjunctivae normal Sclera: sclerae normal EOM: EOM intact bilaterally Resp Effort & Inspection: normal respiratory effort and able to speak in complete sentences Cardio Rate: regular rate GI Palpation: soft, incisions CDI Extrem General: no pedal edema and no calf tenderness Objective Labs 08/08/25 23:35 08/08/25 23:35 Labs: Laboratory Results - last 24 hr 08/08/25 23:35 WBC 15.9 H RBC 5.49 Hgb 16.4 Hct 47.9 MCV 87.3 MCH 29.9 MCHC 34.3 RDW 13.1 Plt Count 215 Neut % (Auto) 81.9 H Lymph % (Auto) 10.9 L [place] % (Auto) 5.8 Eos % (Auto) 0.3 L Baso % (Auto) 1.1 Neut # (Auto) 36874 H Lymph # (Auto) 1700 [place] # (Auto) 900 Eos # (Auto) 0 Baso # (Auto) 200 H Sodium 139 Potassium 3.8 Chloride 101 Carbon Dioxide 27 BUN 19 Creatinine 0.80 Estimated GFR > 60 BUN/Creatinine Ratio 23.8 H Glucose 107 H Calcium 9.8 Total Bilirubin 0.9 AST 39 ALT 54 H Alkaline Phosphatase 78 Total Protein 8.5 H Albumin 5.0 Globulin 3.5 Albumin/Globulin Ratio 1.4 Lipase 92 PFSH Medical History Hypertriglyceridemia Gallstones Fatty liver Sleep apnea, central Surgical History [place] teeth extracted Family History Grandfather Stroke Prostate cancer Family/Other Cancer, face Social History marital status: household members: spouse, family and children lives independently: Yes occupational status: employed Smoking Status: Never smoker alcohol intake: current substance use type: does not use Discharge Assessment & Plan Assessment and Plan Assessment: S/P lap appy for acute appendicitis Plan of Treatment: Home today with f/u in office Discharge Plan Discharge Plan Patient Disposition: Home Provider Discharge Comment: Shower ok, no swimming for 2 weeks Regular diet Take pain meds as needed Miralax for constipation See me in office in 2 weeks [phone] No lifting restrictions Discharge orders & Medications Prescriptions: New hydrocodone-acetaminophen 5-325 mg tablet 1 tab PO Q4H PRN (Reason: pain) Qty: 10 0RF Continued clobetasol 0.05 % ointment 0.05 % Topical QDAY Qty: 15 0RF lysine 500 mg tablet 500 mg PO DAILY Patient Comments: Pt. takes 3-4 tablets a month ketoconazole 2 % cream 1 applic topical BID ursodiol 500 mg tablet 500 mg PO BID Rx Instructions: 1/2 TABLET TWICE DAILY pantoprazole 40 mg tablet,delayed release (DR/EC) 40 mg PO BEDTIME Follow up/Referrals: Sisi Neal ARNP [Primary Care Provider, Nursing] Francisco Culver MD [Physician, General Surgery] Diet/Activity/Treatments Diet: Diet as Tolerated Skin/Wound/Dressing Care Report to your healthcare provider any signs of infection, such as:: chills, fever, night sweats, increased pain, unusual drainage and unusual redness Visit Report/Discharge Packet Instructions: DI for an Appendectomy, DI for Laparoscopy, DI for Prescription Opioid Use Stand Alone Forms: Patient Portal/API, Stroke Signs & Symptoms Discharge Data Primary Care Provider: Sisi Neal Attending Provider: Francisco Culver Admit Date/Time: 08/09/25 01:57 PROFEE Charge Codes Discharge inpatient/observation: 23047
--- NOTE | 2025-08-09 15:18 | PC.NURSE ---
Discharge instructions given and understood by pt. PIV removed. Pt discharged with pt's family via private vehicle, escorted to the entrance via wheelchair.
== END 2025-08-09 15:19 | disposition home or self-care (01) ==
LOC: ED 08-09 01:56 → AC 08-09 02:17
PROVIDERS: Admitting Provider Surgery; Emergency Provider Emergency Medicine; PCP Nurse Practitioner; Referring Provider Emergency Medicine; Visit Provider Surgery
PROC: 0DTJ4ZZ Resection of Appendix, Percutaneous Endoscopic Approach (ICD-10-PCS; CPT 44970; principal; 2025-08-09 03:00)
DX: K35.80 Unspecified acute appendicitis (principal)
CPT/HCPCS: 44970; 36415; 74177; 80053; 81003; 83690; 85025; 96361; 96365; 96366; 96367; 96372; 96375; 99284; G0378; J0131; J0330; J0696; J1100; J1644; J1885; J2250; J2405; J2704; J3010; J7030; J7050; J7120; Q9967